=== PATIENT | male | born 1945 | race Caucasian/White ===

== ENCOUNTER 2016-10-16 01:17 | Observation (INO) | payer MEDICARE ==
[~2016-10-16] VITALS: Ht 177.8 cm; Wt 68.0 kg
[2016-10-16] VITALS (10 sets, daily range): BP systolic 81–116; BP diastolic 50–70; PULSE 60–80; RESP 14–22; TEMP 97–98; O2SAT 96–100
[~2016-10-16 01:17] MED LIST: COLY4000S PO; FLEEENE RE; OMPR20CCR
[2016-10-16] MEDS ORDERED: SODIUM CHLOR 0.9% 1000 ML INJ 1,000 ML IV SCH (01:49)
--- NOTE | 2016-10-16 01:55 | PD ---
HPI Chief Complaint: Abdominal Pain Time Seen by Provider: 01:48 Travel History International Travel<30 days: No Contact w/Intl Traveler<30days: No Traveled to known affect area: No History of Present Illness HPI 71yo M with PMH of hernia repair, gastroparesis presents to the ED with c/o abdominal pain since 10pm today. States pain is periumbilical, constant and nonradiating. +Nausea. +Nonbloody diarrhea. Pain improved after diarrhea. Denies any fever, chest pain, sob, vomiting, urinary complaints. PFSH Past Medical History Autoimmune Disease: No Anxiety: Yes Depression: No Cancer: No Cardiovascular Problems: No Diminished Hearing: No Diverticulitis: Yes Endocrine: No Gastrointestinal Disorders: Yes (GASTROPARESIS) GERD: Yes Genitourinary: No Hiatal Hernia: Yes Immune Disorder: No Musculoskeletal: No Neurologic: No Psychiatric: Yes Reproductive: No Respiratory: No Ulcer: No Tetanus Vaccination: Unknown Influenza Vaccination: No Past Surgical History Abdominal Surgery: Yes (BILAT INGUINAL HERNIA REPAIR WITH MESH) Cardiac Surgery: No Ear Surgery: No Endocrine Surgery: No Eye Surgery: No Genitourinary Surgery: No Gynecologic Surgery: No Oral Surgery: No Thoracic Surgery: No Other Surgery: Yes (COLON POLYPS REMOVED) Social History Alcohol Use: No Tobacco Use: No Substance Use: No Allergies-Medications (Allergen,Severity, Reaction): Coded Allergies: No Known Allergies (Unverified , 10/16/16) Reported Meds & Prescriptions Reported Meds & Active Scripts Active Zantac (Ranitidine HCl) 150 Mg Tab 150 Mg PO BID Iron (Ferrous Sulfate) 325 Mg Tab 325 Mg PO BIDPC Take after a meal. Review of Systems Except as stated in HPI: all other systems reviewed are Neg Physical Exam Narrative GENERAL: 71yo M not in distress. SKIN: Focused skin assessment warm/dry. HEAD: Atraumatic. Normocephalic. EYES: Pupils equal and round. No scleral icterus. No injection or drainage. ENT: No nasal bleeding or discharge. Mucous membranes pink and moist. NECK: Trachea midline. No JVD. CARDIOVASCULAR: Regular rate and rhythm. No murmur appreciated. RESPIRATORY: No accessory muscle use. Clear to auscultation. Breath sounds equal bilaterally. GASTROINTESTINAL: Abdomen soft, +TTP RLQ. +TTP periumbilical region. No rebound tenderness or guarding. MUSCULOSKELETAL: No obvious deformities. No clubbing. No cyanosis. No edema. NEUROLOGICAL: Awake and alert. No obvious cranial nerve deficits. Motor grossly within normal limits. Normal speech. PSYCHIATRIC: Appropriate mood and affect; insight and judgment normal. Data Data Last Documented VS Vital Signs Date Time Temp Pulse Resp B/P Pulse Ox O2 Delivery O2 Flow Rate FiO2 10/16/16 03:16 79 18 116/55 97 Room Air 10/16/16 01:39 98.0 Orders Complete Blood Count With Diff (10/16/16 01:49) Comprehensive Metabolic Panel (10/16/16 01:49) Lipase (10/16/16 01:49) Prothrombin Time / Inr (Pt) (10/16/16 01:49) Act Partial Throm Time (Ptt) (10/16/16 01:49) Urinalysis - C+S If Indicated (10/16/16 01:49) Ct Abd/Pel W Iv Contrast(Rout) (10/16/16 01:49) Iv Access Insert/Monitor (10/16/16 01:49) Ecg Monitoring (10/16/16 01:49) Oximetry (10/16/16 01:49) Ondansetron Inj (Zofran Inj) (10/16/16 02:00) Sodium Chlor 0.9% 1000 Ml Inj (Ns 1000 M (10/16/16 01:49) Sodium Chloride 0.9% Flush (Ns Flush) (10/16/16 02:00) Ketorolac Inj (Toradol Inj) (10/16/16 02:00) Pantoprazole Inj (Protonix Inj) (10/16/16 03:00) Iohexol 350 Inj (Omnipaque 350 Inj) (10/16/16 04:10) C Diff Toxin Pcr (10/16/16 06:11) Admit Order (Ed Use Only) (10/16/16 06:30) Labs Laboratory Tests Test 10/16/16 10/16/16 10/16/16 01:55 02:45 04:20 White Blood Count 17.7 TH/MM3 Red Blood Count 5.11 MIL/MM3 Hemoglobin 10.6 GM/DL Hematocrit 34.1 % Mean Corpuscular Volume 66.7 FL Mean Corpuscular Hemoglobin 20.8 PG Mean Corpuscular Hemoglobin 31.2 % Concent Red Cell Distribution Width 19.3 % Platelet Count 273 TH/MM3 Mean Platelet Volume 9.0 FL Neutrophils (%) (Auto) 83.4 % Lymphocytes (%) (Auto) 11.4 % Monocytes (%) (Auto) 4.3 % Eosinophils (%) (Auto) 0.6 % Basophils (%) (Auto) 0.3 % Neutrophils # (Auto) 14.7 TH/MM3 Lymphocytes # (Auto) 2.0 TH/MM3 Monocytes # (Auto) 0.8 TH/MM3 Eosinophils # (Auto) 0.1 TH/MM3 Basophils # (Auto) 0.1 TH/MM3 CBC Comment AUTO DIFF Differential Comment AUTO DIFF CONFIRMED Platelet Estimate NORMAL Platelet Morphology Comment NORMAL Ovalocytes 1+ Acanthocytes 1+ Sodium Level 141 MEQ/L Potassium Level 3.7 MEQ/L Chloride Level 109 MEQ/L Carbon Dioxide Level 23.5 MEQ/L Anion Gap 9 MEQ/L Blood Urea Nitrogen 11 MG/DL Creatinine 1.19 MG/DL Estimat Glomerular Filtration 61 ML/MIN Rate Random Glucose 163 MG/DL Calcium Level 9.0 MG/DL Total Bilirubin 0.3 MG/DL Aspartate Amino Transf 19 U/L (AST/SGOT) Alanine Aminotransferase 20 U/L (ALT/SGPT) Alkaline Phosphatase 52 U/L Total Protein 6.9 GM/DL Albumin 3.7 GM/DL Lipase 379 U/L Prothrombin Time 11.4 SEC Prothromb Time International 1.0 RATIO Ratio Activated Partial 20.6 SEC Thromboplast Time Urine Color LIGHT-YELLOW Urine Turbidity CLEAR Urine pH 7.5 Urine Specific [place] 1.011 Urine Protein TRACE mg/dL Urine Glucose (UA) NEG mg/dL Urine Ketones NEG mg/dL Urine Occult Blood NEG Urine Nitrite NEG Urine Bilirubin NEG Urine Urobilinogen LESS THAN 2.0 MG/DL Urine Leukocyte Esterase NEG Urine RBC LESS THAN 1 /hpf Urine WBC 1 /hpf Urine Hyaline Casts 1 /lpf Urine Mucus FEW /lpf Urine Sperm FEW Microscopic Urinalysis Comment CULT NOT INDICATED MDM Medical Decision Making Medical Screen Exam Complete: Yes Emergency Medical Condition: Yes Differential Diagnosis Viral gastroenteritis vs. colitis vs. gastroparesis vs. partial obstruction vs. appendicitis vs. cdiff Narrative Course 71yo M with Barett's esophagus, here abdominal pain and diarrhea. Pt initially hypotensive at 81/51. Pt given IVF NS and is now 116/55. Labs reviewed, leukocytosis at 17.7. However, pt is not tachycardic or febrile. H/H 10.6/ 34.1. H/H is lower than prior. Hemaprompt is negative and pt denies any blood in stool or bleeding. CMP unremarkable. CT a/p showed no acute findings within the abdomen and pelvis. Colonic diverticulosis without diverticulitis. Calcified gallstone in gallbladder. LFTs normal. Lipase normal. Urine negative for leukocyte or nitrite. Pt reevaluated at bedside and feels like his abdominal pain is returning. Pt's blood pressure is still low. Even though hemaprompt was negative, feel that H/ H is significantly lower than his prior in 2012 and worried about intermittent GI bleed. Will admit for observation for dehydration. HemaPrompt Point of Care Internal Pos. & Neg. Controls: Passed Fecal Specimen Occult Blood: Negative Diagnosis Primary Impression: Dehydration Admitting Information Admitting Physician Requests: Observation Scripts Ranitidine (Zantac)150 Mg [id number] Mg PO BID #60 TAB Ref 0 Prov:Claudia Victoria 10/16/16 Ferrous Sulfate (Iron)325 Mg [id number] Mg PO BIDPC #62 TAB Ref 0 Take after a meal. Prov:Claudia Victoria 10/16/16 Jacque Martinez DO Oct 16, 2016 01:55
[2016-10-16] MEDS ORDERED: KETOROLAC TROMETHAMINE 30 MG/ML (IVP) VIAL IV PUSH ONE (02:00)
[2016-10-16] MEDS ORDERED: SODIUM CHLORIDE 0.9% FLUSH 10 ML FLUSH IV FLUSH PRN ×2 (02:00→08:30)
[2016-10-16] MEDS ORDERED: ONDANSETRON HCL 4 MG/2 ML VIAL IVP ONE (02:00)
[2016-10-16 02:22] LABS: AUTOMATED NEUTROPHIL # 14.7 TH/MM3 (1.8-7.7); BASOPHIL # 0.1 TH/MM3 (0-0.2); BASOPHIL % 0.3 % (0.0-2.0); EOSINOPHIL # 0.1 TH/MM3 (0-0.4); EOSINOPHIL % 0.6 % (0.0-4.0); HEMATOCRIT 34.1 % (39.0-51.0); LYMPH % 11.4 % (9.0-44.0); MEAN CELL VOLUME 66.7 FL (80.0-100.0); MEAN CORPUSCULAR HEMOGLOBIN 20.8 PG (27.0-34.0); MEAN CORPUSCULAR HGB CONC 31.2 % (32.0-36.0); MONO % 4.3 % (0.0-8.0); NEUT % 83.4 % (16.0-70.0); PLATELET COUNT 273 TH/MM3 (150-450); RED BLOOD COUNT 5.11 MIL/MM3 (4.50-5.90); RED CELL DISTRIBUTION WIDTH 19.3 % (11.6-17.2); WHITE BLOOD COUNT 17.7 TH/MM3 (4.0-11.0)
[2016-10-16 02:29] LABS: HEMO FLAGS AUTO DIFF
[2016-10-16 02:38] LABS: ALT (GPT) 20 U/L (12-78); ANION GAP 9 MEQ/L (5-15); AST (GOT) 19 U/L (15-37); BICARBONATE 23.5 MEQ/L (21.0-32.0); BLOOD UREA NITROGEN 11 MG/DL (7-18); CHLORIDE 109 MEQ/L (98-107); GLOMERULAR FILTRATION RATE 61 ML/MIN (>89); POTASSIUM 3.7 MEQ/L (3.5-5.1); SODIUM (NA) 141 MEQ/L (136-145)
[2016-10-16 02:40] LABS: ALKALINE PHOSPHATASE 52 U/L (45-117); TOTAL BILIRUBIN ADULT 0.3 MG/DL (0.2-1.0)
[2016-10-16] MEDS ORDERED: PANTOPRAZOLE SODIUM 40 MG VIAL IV PUSH ONE (03:00)
[2016-10-16 03:15] LABS: APTT (PATIENT) 20.6 SEC (24.3-30.1); PROTHROMBIN TIME - PATIENT 11.4 SEC (9.8-11.6)
[2016-10-16 03:34] LABS: ACANTHOCYTES 1+ (NORMAL); OVALOCYTES 1+ (NORMAL)
[2016-10-16 03:36] LABS: PLATELET ESTIMATE SMEAR NORMAL (NORMAL); PLATELET MORPHOLOGY NORMAL (NORMAL); SCAN/DIFF AUTO DIFF CONFIRMED
[2016-10-16] MEDS ORDERED: IOHEXOL 350 MG/ML 10 ML VIAL (for RAD DIAG) IV ONE (04:10)
--- NOTE | 2016-10-16 04:15 | RADRPT ---
EXAM DATE/TIME: 10/16/2016 03:42 [place] COMPARISON: No previous studies available for comparison. INDICATIONS : Abdominal pain. IV CONTRAST: 96 cc Omnipaque 350 (iohexol) IV ORAL CONTRAST: No oral contrast ingested. RADIATION DOSE: 6.20 CTDIvol (mGy) MEDICAL HISTORY : Gastroparesis. Gastroesophageal reflux disease. Diverticulitis.Hiatal hernia SURGICAL HISTORY : Inguinal hernia repair. ENCOUNTER: Initial ACUITY: 1 day PAIN SCALE: 3/10 LOCATION: abdomen TECHNIQUE: Volumetric scanning of the abdomen and pelvis was performed. Using automated exposure control and ad justment of the mA and/or kV according to patient size, radiation dose was kept as low as reasonably achievable to obtain optimal diagnostic quality images. FINDINGS: Lung bases clear except for minimal dependent atelectasis. Multiple hepatic cysts present. Mild fatty liver. Spleen, adrenals, pancreas unremarkable. Small bilateral renal cysts. Calcified gallstone pre sent in gallbladder. No free fluid or free air. No bowel obstruction. There is colonic diverticulosis, especially sigmoid without evidence for diverticulitis. CONCLUSION: 1. No acute findings within the abdomen and pelvis. Colonic diverticulosis without diverticulitis. He patic and small renal cysts. Calcified gallstone in gallbladder. London Purcell MD on October 16, 2016 at 4:11 Board Certified Radiologist. This report was verified electronically.
[2016-10-16 04:51] LABS: BLOOD, URINE NEG (NEG); COMMENT (UR) CULT NOT INDICATED; CULTURE IF INDICATED CULT NOT INDICATED; GLUCOSE,URINE NEG (NEG); HYALINE CAST, URINE 1 /lpf (RARE); KETONE, URINE NEG (NEG); MUCUS URINE FEW /lpf (OCC); NITRITE,URINE NEG (NEG); PH, URINE 7.5 (5.0-8.5); URINE COLOR LIGHT-YELLOW (YELLW/STRAW)
[2016-10-16] MEDS ORDERED: ACETAMINOPHEN 325 MG TAB PO PRN (08:30)
[2016-10-16] MEDS ORDERED: NALOXONE HCL 0.4 MG/ML AMP IV PRN (08:30)
[2016-10-16] MEDS ORDERED: ONDANSETRON HCL 4 MG/2 ML VIAL IVP PRN (08:30)
[2016-10-16] MEDS ORDERED: MAGNESIUM HYDROXIDE SUSP 30 ML CUP PO PRN (08:30)
--- NOTE | 2016-10-16 08:59 | HHI.HP ---
HPI Service [facility] Hospitalists Primary Care Physician Dr. Maldonado Harper Admission Diagnosis Dehydration Chief Complaint: Abdominal pain, nausea Travel History International Travel<30 Days: No Contact w/Intl Traveler <30 Da: No Traveled to Known Affected Are: No History of Present Illness Mr. Rivera is a 71 y/o WM with GERD, Narayanan's esophagus, and reported hx of gastroparesis. He presented to the ED at [facility] [place]16 with complaints of severe abd pain and nausea. He states that last night a few hours after he had eaten dinner, which consisted of fried chicken and asparagus, he started to develop some mid abdominal pain. He states that initially the pain was a dull ache and progressively worsened into sharp stabbing pain. He had some associated nausea but no vomiting. He tried taking Maalox and Gas-Ex without any relief. After arrival to the ED he had one loose BM but none since then. His BP was low and he was given IVF in the ED. Labs at admission noted an elevated WBC count of 17.7. He was noted to be anemic as well with Hgb 10.6, Hct 34.1, MCV 66.7, MCH 20.8. He denies any changes in his bowel habits, melena , BRBPR or hematochezia. Pt was Hemoccult negative in the ED. He states that he is typically very regular. Pt had a CT Abd/pelvis in the ED which noted no acute findings within the abdomen and pelvis, colonic diverticulosis without diverticulitis, hepatic and small renal cysts, and calcified gallstone in gallbladder. Pt states that the abdominal pain and nausea subsided around 0400 this morning. He still feels bloated but denies any pain. He states that he thinks his son-in-law and granddaughter have been sick with a stomach virus and he is around them regularly. His blood pressure was low with systolic in the 80 's upon arrival to the ED and pt was given IVF. His BP has been improving. Pt is anxious to eat and wants to go home. Review of Systems Constitutional: DENIES: Fever, Chills Eyes: DENIES: Blurred vision Ears, nose, mouth, throat: DENIES: Hearing loss Respiratory: DENIES: Cough Cardiovascular: DENIES: Chest pain, Palpitations, Lower Extremity Edema Gastrointestinal: COMPLAINS OF: Abdominal pain, Diarrhea, Nausea, DENIES: Black stools, Bloody stools, BRB per rectum, GERD, Reflux, Vomiting Genitourinary: DENIES: Dysuria Musculoskeletal: DENIES: Joint pain, Neck pain Integumentary: DENIES: Rash Neurologic: DENIES: Headache Psychiatric: DENIES: Confusion, Depression Past Family Social History Past Medical History Narayanan's esophagus GERD Hx of colon polyps Colonic AVMs Gastroparesis, reportedly diagnosed with EGD 3-4 years ago Diverticulosis Left inguinal hernia Hyperlipidemia Anxiety Past Surgical History Inguinal hernia repair, bilateral EGD/colonoscopy on 02/13/2011 --> GERD at the distal esophagus, irregular Z-line , hiatal hernia, AVM in the rectum and ascending colon, three polyps in the cecum, sessile polyp in the ascending colon, moderate diverticulosis. EGD around 3-4 years ago at [facility] and reportedly had retained liquid in the stomach. Reported Medications No Active Prescriptions or Reported Medications Allergies: Coded Allergies: No Known Allergies (Unverified , 10/16/16) Family History Noncontributory Social History Denies any alcohol, tobacco or illicit drug use Physical Exam Vital Signs Vital Signs Date Time Temp Pulse Resp B/P Pulse Ox O2 Delivery O2 Flow Rate FiO2 10/16/16 07:53 68 18 91/53 96 Room Air 10/16/16 03:16 79 18 116/55 97 Room Air 10/16/16 03:16 18 97 Room Air 10/16/16 03:00 80 20 97/52 100 Room Air 10/16/16 02:30 61 20 104/58 100 Room Air 10/16/16 01:39 98.0 61 14 104/55 99 10/16/16 01:30 60 20 104/55 100 Room Air 10/16/16 01:24 97.5 67 22 81/51 100 Room Air Physical Exam GENERAL: This is a well-nourished, well-developed patient, in no apparent distress. HEENT: Atraumatic. Normocephalic. No temporal or scalp tenderness. No scleral icterus. Airway patent. NECK: Trachea midline, supple, nontender. CARDIO: Regular. RESP: CTA bilaterally. No wheezes, rales, or rhonchi. ABD: +BS, soft, mildly distended, non-tender EXT: Extremities without clubbing, cyanosis, or edema. NEURO: Awake and alert. Motor and sensory grossly within normal limits. Normal speech. Laboratory Laboratory Tests Test 10/16/16 10/16/16 10/16/16 01:55 02:45 04:20 White Blood Count 17.7 Red Blood Count 5.11 Hemoglobin 10.6 Hematocrit 34.1 Mean Corpuscular Volume 66.7 Mean Corpuscular Hemoglobin 20.8 Mean Corpuscular Hemoglobin 31.2 Concent Red Cell Distribution Width 19.3 Platelet Count 273 Mean Platelet Volume 9.0 Neutrophils (%) (Auto) 83.4 Lymphocytes (%) (Auto) 11.4 Monocytes (%) (Auto) 4.3 Eosinophils (%) (Auto) 0.6 Basophils (%) (Auto) 0.3 Neutrophils # (Auto) 14.7 Lymphocytes # (Auto) 2.0 Monocytes # (Auto) 0.8 Eosinophils # (Auto) 0.1 Basophils # (Auto) 0.1 CBC Comment AUTO DIFF Differential Comment AUTO DIFF CONFIRMED Platelet Estimate NORMAL Platelet Morphology Comment NORMAL Ovalocytes 1+ Acanthocytes 1+ Sodium Level 141 Potassium Level 3.7 Chloride Level 109 Carbon Dioxide Level 23.5 Anion Gap 9 Blood Urea Nitrogen 11 Creatinine 1.19 Estimat Glomerular Filtration 61 Rate Random Glucose 163 Calcium Level 9.0 Total Bilirubin 0.3 Aspartate Amino Transf 19 (AST/SGOT) Alanine Aminotransferase 20 (ALT/SGPT) Alkaline Phosphatase 52 Total Protein 6.9 Albumin 3.7 Lipase 379 Prothrombin Time 11.4 Prothromb Time International 1.0 Ratio Activated Partial 20.6 Thromboplast Time Urine Color LIGHT-YELLOW Urine Turbidity CLEAR Urine pH 7.5 Urine Specific [place] 1.011 Urine Protein TRACE Urine Glucose (UA) NEG Urine Ketones NEG Urine Occult Blood NEG Urine Nitrite NEG Urine Bilirubin NEG Urine Urobilinogen LESS THAN 2.0 Urine Leukocyte Esterase NEG Urine RBC LESS THAN 1 Urine WBC 1 Urine Hyaline Casts 1 Urine Mucus FEW Urine Sperm FEW Microscopic Urinalysis Comment CULT NOT INDICATED Result Diagram: 10/16/16 0155 10/16/16 015 Imaging Last Impressions Abdomen/Pelvis CT 10/16/16 0149 Signed Impressions: Service Date/Time: September 03:42 - CONCLUSION: 1. No acute findings within the abdomen and pelvis. Colonic diverticulosis without diverticulitis. Hepatic and small renal cysts. Calcified gallstone in gallbladder. London Purcell MD Septic Shock Reassessment Heart: Regular rate and rhythm Lungs: Clear Skin: Warm Peripheral Pulses: Bounding Right Radial Bounding Left Radial Bounding Right Popliteal Bounding Left Popliteal Bounding Right Dorsalis Pedis Bounding Left Dorsalis Pedis Bounding Right Posterior Tibial Bounding Left Posterior Tibial Assessment and Plan Problem List: (1) Abdominal pain Status: Acute Plan: - Pt admitted with sudden onset of mid abdominal pain that began a few hours after eating last night. He had associated nausea and one episode of diarrhea. - Pt had noted leukocytosis at admission but has been afebrile. - Pt reports ill contacts with his son-in-law and granddaughter having been sick with he thinks a stomach virus recently. - CT Abd/pelvis (10/16) --> No acute findings within the abdomen and pelvis. Colonic diverticulosis without diverticulitis. Hepatic and small renal cysts. Calcified gallstone in gallbladder. - LFTs were WNL. Lipase was WNL. - Pt is feeling better this morning and denies any further abdominal pain or nausea. Pts symptoms may have been secondary to a gastroenteritis. He is anxious to eat and go home. - We will provide a diet for the pt and see how he feels after he eats. - If tolerating his diet anticipate discharge to home this afternoon with outpt followup with his PCP and GI. (2) Leukocytosis Status: Acute Plan: - See above. (3) Hypochromic microcytic anemia Status: Acute Plan: - Pt reports more fatigue over the last month. - He is noted to be anemic at admission with Hgb 10.6, Hct 34.1, MCV 66.7, MCH 20.8. - He denies any changes in his bowel habits, melena, BRBPR or hematochezia. Pt was Hemoccult negative in the ED. - Pt previously had an EGD/colonoscopy on 02/13/2011 --> GERD at the distal esophagus, irregular Z-line, hiatal hernia, AVM in the rectum and ascending colon, three polyps in the cecum, sessile polyp in the ascending colon, moderate diverticulosis. - He states that he had another EGD around 3-4 years ago at [facility] in [place] and was diagnosed with gastroparesis based on some retained gastric contents at that time. - Pt does not want to see GI during this admission and would prefer to followup as an outpt. - Pt notably iron deficient - Start iron supplements 325mg po BID - He does not want a PPI because he states that he had side effects from it previously and would prefer Zantac 150mg po BID. - He will need outpt followup with GI. (4) Hypotension Status: Chronic Plan: - Pt reports that his BP is typical low/normal - He has been up and ambulating and does not feel dizzy. - BP improved with IVF in the ED (5) GERD (gastroesophageal reflux disease) Status: Chronic Plan: - PPI Assessment and Plan Pt was seen and examined by Dr. Yeh and the pt was recommended continued hospitalization and evaluation by GI. The pt adamantly refused this and requested discharge to home today. Pt was recommended to followup with his PCP, Dr. Fountain, or with a new PCP as he states that he owes Dr. Fountain money and can't see him. Pt will need followup with [facility] in 1-2 weeks. He is to call for that appt. Pt will be discharged on Zantac 150mg po BID and FeSo4 325mg po BID. Patient examined. Assessment and plan formulated with Claudia Victoria PA-C. I agree with the above. Claudia Victoria Oct 16, 2016 08:59 Edouard Yeh DO Oct 17, 2016 00:19
[2016-10-16] MEDS ORDERED: SODIUM CHLORIDE 0.9% FLUSH 10 ML FLUSH IV FLUSH SCH (09:00)
[2016-10-16 10:23] LABS: TRANSFERRIN IRON PROFILE 267 MG/DL (200-360)
[2016-10-16 10:26] LABS: FERRITIN 5 NG/ML (26-388)
[2016-10-16 10:38] LABS: AUTOMATED NEUTROPHIL # 16.1 TH/MM3 (1.8-7.7); BASOPHIL % 0.1 % (0.0-2.0); EOSINOPHIL % 0.1 % (0.0-4.0); HEMATOCRIT 36.1 % (39.0-51.0); LYMPH % 6.5 % (9.0-44.0); LYMPHOCYTE # 1.2 TH/MM3 (1.0-4.8); MEAN CELL VOLUME 66.6 FL (80.0-100.0); MEAN CORPUSCULAR HEMOGLOBIN 20.3 PG (27.0-34.0); MEAN CORPUSCULAR HGB CONC 30.6 % (32.0-36.0); NEUT % 90.3 % (16.0-70.0); PLATELET COUNT 236 TH/MM3 (150-450); RED BLOOD COUNT 5.42 MIL/MM3 (4.50-5.90); RED CELL DISTRIBUTION WIDTH 19.7 % (11.6-17.2); WHITE BLOOD COUNT 17.8 TH/MM3 (4.0-11.0)
[2016-10-16 10:41] LABS: HEMO FLAGS AUTO DIFF
[2016-10-16 11:28] LABS: ACANTHOCYTES OCC (NORMAL); KERATOCYTES OCC (NORMAL); OVALOCYTES 1+ (NORMAL); PLATELET ESTIMATE SMEAR NORMAL (NORMAL); PLATELET MORPHOLOGY NORMAL (NORMAL); SCAN/DIFF AUTO DIFF CONFIRMED
[2016-10-16] MEDS ORDERED: FERR1TAB36 PO (12:33)
[2016-10-16] MEDS ORDERED: ZANT150T2 PO (12:33)
--- NOTE | 2016-10-16 12:37 | HHI.DCPOC ---
Discharge Care Plan Diagnosis: (1) Abdominal pain (2) Hypochromic microcytic anemia (3) GERD (gastroesophageal reflux disease) (4) Leukocytosis (5) Dehydration (6) GERD (7) Hypotension Goals to Promote Your Health - Pt is to followup with [facility] in 1-2 weeks, call for an appt. - Pt is to followup with his PCP, Dr. Fountain, or if he choses to establish with a new PCP, then he is to call [facility] Members services ([phone]) to select a new PCP to followup with. Directions to Meet Your Goals Take your medications as prescribed Follow your dietary instruction Follow activity as directed Keep your appointments as scheduled Take your immunizations and boosters as scheduled If your symptoms worsen call your PCP, if no PCP go to Urgent Care Center or Emergency Room Smoking is Dangerous to Your Health. Avoid second hand smoke Call the 24-hour hour crisis hotline for domestic abuse at Claudia Victoria Oct 16, 2016 12:37 Edouard Yeh DO Oct 17, 2016 00:18
--- NOTE | 2016-10-16 13:17 | EKG ---
Date Performed: 10/16/2016 Time Performed: 01:45:27 PTAGE: 71 years EKG: Sinus rhythm MINIMAL VOLTAGE CRITERIA FOR LVH, CONSIDER NORMAL VARIANT BORDERLINE ECG NO PREVIOUS TRACING DOCTOR: Krishna Laureano Interpretating Date/Time 10/16/2016 13:14:47
== END 2016-10-16 14:30 | disposition home or self-care (01) ==
LOC: NEPE 01:17 → NEDA 06:32 → NEDH 11:04
PROVIDERS: ADMIT Hospitalist; ATTEND Hospitalist
DX: R10.9 Unspecified abdominal pain (principal); K31.84 Gastroparesis; K57.32 Diverticulitis of large intestine without perforation or abscess without bleeding; K21.9 Gastro-esophageal reflux disease without esophagitis; K44.9 Diaphragmatic hernia without obstruction or gangrene; Z86.010 Personal history of colon polyps; K80.20 Calculus of gallbladder without cholecystitis without obstruction; E86.0 Dehydration; R11.0 Nausea; D72.829 Elevated white blood cell count, unspecified; D50.9 Iron deficiency anemia, unspecified; N28.1 Cyst of kidney, acquired; K22.70 Barrett's esophagus without dysplasia; Q27.33 Arteriovenous malformation of digestive system vessel; E78.5 Hyperlipidemia, unspecified; R19.7 Diarrhea, unspecified; I95.9 Hypotension, unspecified
CPT/HCPCS: 74177; 80053; 81001; 82728; 83540; 83550; 83690; 85025; 85610; 85730; 93005; 96361; 96374; 96375; 97161; 99285; C9113; G0378; G8987; G8988; J1885; J2405; J7030; Q9967